=== PATIENT | female | born 1975 | race Caucasian/White ===

== ENCOUNTER → 2023-11-06 | Outpatient (CLI) | payer OTHER ==
[2023-11-06 23:03] LABS: Basophils # (A) 0.06 X 10*3/uL (0.00-0.10); Basophils % (A) 0.8 %; Eosinophils # (A) 0.13 X 10*3/uL (0.04-0.35); Eosinophils % (A) 1.7 %; HCT 39.7 % (37.2-46.3); HGB 12.9 g/dL (12.0-15.0); Lymphocytes # (A) 1.72 X 10*3/uL (0.90-5.00); Lymphocytes % (A) 22.5 %; MCH 30.6 pg (27.0-32.0); MCHC 32.5 g/dL (32.0-37.0); MCV 94.3 FL (80.0-97.0); Mean Platelet Volume 11.1 FL (9.5-12.2); Monocytes # (A) 0.79 X 10*3/uL (0.20-1.00); Monocytes % (A) 10.3 %; NRBC Per 100 WBC 0 X 10*3/uL (0.00-0.01); Neutrophils # (A) 4.93 X 10*3/uL (1.80-7.70); Neutrophils % (A) 64.3 %; Platelet Count 252 X 10*3/uL (140-440); RBC 4.21 X 10*6/uL (4.10-5.20); RDW 13.3 % (11.5-14.5); WBC 7.66 X 10*3/uL (4.50-10.00)
[2023-11-06 23:13] LABS: Blood Urea Nitrogen 11.2 mg/dL (9.0-27.0); Carbon Dioxide 26.9 mmol/L (21.6-31.8); Chloride 103 mmol/L (96-109); Potassium 4.4 mmol/L (3.5-5.5); Sodium 139 mmol/L (135-145)
== END | disposition home or self-care (01) ==
LOC: LABPAT 10:04
PROVIDERS: ATTEND Obstetrics & Gynecology Obstetrics
DX: Z01.812 Encounter for preprocedural laboratory examination (principal); D64.9 Anemia, unspecified; N80.129 Deep endometriosis of ovary, unspecified ovary
CPT/HCPCS: 36415; 80051; 82565; 84520; 85025; 86850; 86900; 86901; 87086

== ENCOUNTER 2023-11-11 05:48 | Day surgery (SDC) | payer OTHER ==
[2023-11-10 12:27] VITALS: BMI 27.9
[2023-11-11] MEDS ORDERED: LIDOCAINE 1% (10MG/ML) FOR IV START INTRADERMA PRN (06:06)
[2023-11-11 06:44] LABS: Glucose,Whole Blood 80 mg/dL (70-110)
[2023-11-11] MEDS: LACTATED RINGERS 1,000 ML IV SCH ×2 (06:50→13:36)
[2023-11-11] MEDS: MIDAZOLAM 2 MG/2 ML VIAL IVP ONE (07:13)
[2023-11-11] MEDS: DEXAMETHASONE SOD PHOSPHATE 4 MG/ML 1 ML VIAL IV ONE (07:20)
[2023-11-11] MEDS: ONDANSETRON 4 MG/2 ML VIAL IVP ONE ×2 (07:20→12:02)
[2023-11-11] MEDS: diphenhydrAMINE 50 MG/ML 1 ML VIAL ONE (07:20)
[2023-11-11] MEDS: FAMOTIDINE 20 MG/2 ML VIAL IVP ONE (07:20)
--- NOTE | 2023-11-11 07:26 | P.ANPRN ---
Procedure Note - Anesthesia - Epidural/Spinal Spinal Time Out Performed: Yes Date of Procedure: 11/11/23 Procedure Start Time: 07:12 Procedure Stop Time: 07:16 Location of Patient: PreOp Indication: Acute Post-Operative Pain, Analgesia, Requested by Surgeon Sedation Type: Sedate with meaningful contact maintained Preparation: Sterile Prep Position: Sitting Catheter: None Needle Guage: 25 Narrative: Duramorph 0.3mg intrathecally. AttemptX1 . L4-5 level needle insertion. Blood Aspirated: No Pain Paresthesia on Injection Noted: No Events: Uneventful and Well Tolerated
[2023-11-11] MEDS ORDERED: NEOSTIGMINE 1 MG/ML 10 ML VIAL ONE (07:30)
[2023-11-11] MEDS ORDERED: GLYCOPYRROLATE 0.2 MG/ML 2 ML VIAL ONE (07:30)
[2023-11-11] MEDS ORDERED: fentaNYL (PF) 50 MCG/ML 2 ML AMP ONE (07:30)
[2023-11-11] MEDS ORDERED: SUCCINYLCHOLINE CHLORIDE 200 MG/10 ML VIAL IV ONE (07:30)
[2023-11-11] MEDS ORDERED: MIDAZOLAM 2 MG/2 ML VIAL ONE (07:30)
[2023-11-11] MEDS ORDERED: LIDOCAINE 1% INJ 10MG/ML (20 ML MDV) ONE (07:30)
[2023-11-11] MEDS ORDERED: ROCURONIUM 10 MG/ML (5 ML VIAL) IV ONE (07:30)
[2023-11-11] MEDS ORDERED: PROPOFOL 10 MG/ML 20 ML VIAL IV ONE (07:30)
[2023-11-11] MEDS ORDERED: MORPHINE SULFATE (PF) 0.3 MG/0.3 ML SYR ONE (07:30)
[2023-11-11] MEDS: BUPIVACAINE (PF) 0.25% 30 ML VIAL SQ ONE ×2 (08:10→10:19)
[2023-11-11] MEDS: LACTATED RINGERS 1,000 ML IV ONE ×2 (10:04→12:39)
[2023-11-11] MEDS ORDERED: ONDANSETRON 4 MG/2 ML VIAL IVP PRN (10:50)
[2023-11-11] MEDS ORDERED: Acetaminophen-Codeine 300-30mg TAB PO PRN ×2 (10:50)
[2023-11-11] MEDS ORDERED: SIMETHICONE 80 MG CHEWABLE PO PRN (10:50)
[2023-11-11] MEDS ORDERED: METOCLOPRAMIDE 5 MG/ML 2 ML VIAL IVP PRN (10:50)
[2023-11-11] MEDS: diphenhydrAMINE 50 MG/ML 1 ML VIAL IVP ONE (10:57)
[2023-11-11] MEDS: ACETAMINOPHEN IV (For NPO) 1,000 MG in EMPTY BAG 1 BAG IVPB ONE (11:06)
[2023-11-11] MEDS ORDERED: NALOXONE 0.4 MG/ML 1 ML VIAL IV PRN (11:21)
[2023-11-11] MEDS ORDERED: NALBUPHINE 10 MG/ML (10 ML MDV) IV PRN (11:30)
[2023-11-11] MEDS: NALBUPHINE 10 MG/ML (10 ML MDV) IM ONE (11:43)
--- NOTE | 2023-11-11 12:00 | P.OP ---
Date of Procedure: 11/11/23 Preoperative Diagnosis: Enlarged fibroid uterus, menorrhagia, endometrioma, right ovary failed medical management Postoperative Diagnosis: Same Procedure(s) Performed: Robotic assist vaginal hysterectomy, right salpingo-oophorectomy, diagnostic cystoscopy Anesthesia: JILLIAN Surgeon: Vero Sanders Coat Padder #1: Rosana Coppola Estimated Blood Loss (ml): 50 IV fluids (ml): 600 Urine output (ml): 500 Pathology: other Condition: stable Disposition: PACU Indications for Procedure: Enlarged fibroid uterus, failed medical treatment. Operative Findings: Grossly enlarged uterus, right ovary with noted endometrioma, left ovary noted to be adherent to the left pelvic sidewall normal in appearance Description of Procedure: Patient was taken back to the operating suite where general anesthesia was obtained without difficulty by the anesthesia department. She was prepped and draped in the normal sterile fashion in the dorsal lithotomy position. A Carroll catheter was placed under sterile technique. A weighted speculum space in the posterior vaginal vault the anterior lip of the cervix was visualized and grasped with a single-tooth tenaculum. She did have a Mirena IUD in place and strings were not visualized and it was unable to be removed initially during the surgery. The endocervical canal was then easily serially dilated and a Kitchensurfing uterine manipulator was advanced into the uterus as a means to manipulate the uterus throughout the procedure. The balloon was insufflated with air and the cervical cap was placed to go against the cervix. All instruments were then removed from the patient's vaginal vault. Attention then turned the patient's abdomen where approximately 2 fingerbreadths above the umbilicus a small skin incision was made. Through this incision the Veress needle was placed. Once the Veress needle was deemed to be in the appropriate position with a drop of CO2 gas CO2 insufflation was allowed to occur. At this time a 8 mm trocar and sleeve with the laparoscope in place was placed through the skin incision and toward the pneumoperitoneum. The above-noted findings are visualized. The additional port sites were then placed at 10 cm lateral and 3 cm inferior to midline port these are 8 mm ports and then placed under direct visualization. In the right upper quadrant an senior court office assistant port is then placed at this is a 12 mm port placed under direct visualization. The da Lee was then docked in the usual fashion. In the right operative arm the monopolar scissors is placed, and the left operative arm the bipolar forceps is placed. Attention then turned to the patient's left adnexa the left ovary was noted to be densely adherent to the pelvic sidewall. The left utero-ovarian ligament was visualized coagulated distally and proximally and divided. This continued through the broad and toward the round ligament which was coagulated and transected. Hemostasis was appreciated. The bladder flap from the left was then created using sharp and blunt dissection. The ascending branch of the uterine artery was noted coagulated and transected. Attention was then turned to the patient's right adnexa the right infundibulopelvic ligament was visualized coagulated distally and proximally and divided. This continued through the broad and toward the round which was coagulated and transected. Incidental spillage of the endometrioma was noted during coagulation of the infundibulopelvic ligament. The round ligament was coagulated distally and proximally and divided. The bladder flap from the right was then created using sharp and blunt dissection. The bladder was noted to be free from the operating field but a Ray-Fabiola was placed inside the abdomen to freely dissect the bladder further away from the operating field. Once the bladder was dissected away from the operating field the Ray-Fabiola was removed from the abdomen. The ascending branch of the uterine artery from the right was then visualized coagulated and transected. Hemostasis was noted. At this time the only remaining attachment was a vaginal attachment therefore colpotomy incision was carefully made in a circumferential fashion. Dense inflammatory tissue secondary to her endometriosis was noted on the left vaginal cuff. The uterus was then transected into approximately 5 separate pieces and delivered through the abdomen 2 pieces were placed in Endo Catch bags and these bags were placed through the vaginal opening without difficulty. Once all pieces of the uterine tissue were removed along with the right fallopian tube and ovary the pelvis was then copiously irrigated. No bleeding was appreciated. The vaginal cuff was then closed with 0 Vicryl in a [id number]-ihges fashion. Approximately 4 sutures were used to obtain hemostasis. Inspection of the vaginal cuff revealed hemostasis. The left ovary was normal in nature no bleeding was appreciated. At this time all instruments were removed from the patient's abdomen. The da Lee was undocked in the usual fashion. The Carroll catheter then draining clear yellow urine throughout the procedure and was removed without difficulty. The cystoscope was then performed . The bladder was distended with fluid no defects were appreciated. E flux of urine was appreciated the urine was quite clear and was unable to differentiate what ureteral orifices the eflux was coming from, the left ureteral orifice this was pulsating in a normal fashion but no definitive urine was appreciated. At this time the scope was removed and the Carroll catheter was replaced. The skin i ncisions were then closed with 4-0 Vicryl in a subcuticular fashion Steri-Strips and sterile dressings were applied. All counts were to be correct x 2 at the end of the procedure. Patient tolerated procedure well and is resting comfortably.
[2023-11-11] MEDS: HYDROmorphone 0.5 MG/0.5 ML SYRINGE IVP PRN (12:02)
[2023-11-11] MEDS ORDERED: ARTIFICIAL TEARS-HYPROMELLOSE DROPS 15 ML BTL BOTH EYES PRN (13:30)
[2023-11-11] MEDS: SCOPOLAMINE 1 MG/72 HR PATCH TRANSDERM ONE (13:36)
[2023-11-11] MEDS: droPERidol 5 MG/2 ML VIAL IVP ONE (13:36)
--- NOTE | 2023-11-11 13:41 | P.PN ---
Progress Note - Text Progress Note Date: 11/11/23 Into see patient to discuss procedure. Discussed large fibroid uterus, significant endometriosis noted in the left lower quadrant. Inflammatory changes appreciated. Cystoscopy noted to be nondiagnostic with minimal eflux noted from left ureter, plan CT IVP to evaluate urinary tract system. It appeared surgically to be away from the operating field but given cystoscopy findings further diagnostic workup is prudent. Patient and family state understanding, CT is ordered
--- NOTE | 2023-11-11 15:56 | CT ---
EXAMINATION TYPE: CT urogram wo/w con DATE OF EXAM: 11/11/2023 COMPARISON: None HISTORY: 48-year-old female s/p RAVH, large fibroid uterus with endometriosis TECHNIQUE: Contiguous axial scanning of the abdomen and pelvis performed without and with IV Contrast , patient injected with 100 mL of Isovue 300. Delayed images through the kidneys and bladder were obt ained. Coronal/sagittal reconstructions performed. CT DLP: 2825 mGycm Automated exposure control for dose reduction was used. FINDINGS: Heart normal size without pericardial effusion. Lung bases clear without pleural effusion. Mild free peritoneal air throughout the abdomen likely on a postsurgical basis. Tiny 1 cm hemangioma within the central right liver lobe. Portal venous system is patent. No biliary ductal dilatation. Gallbladder, adrenal glands, right kidney, spleen, and pancreas within normal limits. No dilated small bowel. There is moderate scattered stool. Benign 1 cm cyst lower pole left kidney. No suspicious renal mass on either side. There is moderate left-sided hydronephrosis and left hydroureter. The dilated left ureter shows a tra nsition point in the left adnexa, approximately 1.5 to 2.0 cm above the level of the UVJ. This seems to be slight eccentric thickening here along the left vaginal cuff, axial image 64. Mild pelvic free fluid. Right ovary not well delineated. There is a 3.3 cm cyst of the left ovary. A couple tiny left-sided p elvic lymph nodes. Carroll catheter in place. Intraluminal bladder air likely related to instrumentatio n. Bones: Moderate degenerative disc disease with disc space narrowing and mild disc bulging at L5-S1. IMPRESSION: 1. MODERATE LEFT-SIDED HYDRONEPHROSIS AND LEFT HYDROURETER. The ureter shows an abrupt caliber change located approximately 1.5 to 2.0 cm above the level of the UVJ. There may be slight eccentric thicke ann-marie here along the left vaginal cuff (axial image 64). Unclear if this represents unintentional liga tion during surgery versus a ureteral stricture (such as relating to endometriosis). 2. Mild postsurgical free air. Mild pelvic free fluid probably postoperative as well. A 3.3 cm domina nt follicle or functional cyst of the left ovary.
--- NOTE | 2023-11-11 19:06 | P.GSCN ---
History of Present Illness Consult date: 11/11/23 History of present illness: asked by Dr. Sanders to see this pleasant 48-year-old female who is status post robotic-assisted laparoscopic hysterectomy. There was a lot of scarring and endometriosis per Dr. sanders. Postoperatively the patient had cystoscopy. The bladder was intact. The right ureter effluxed urine but the left did not. The left did peristalse. No Blood was noted. CAT scanwas performed identifying left-sided hydronephrosis and hydroureter down into the pelvis. For this reason I was asked to see the patient. The patient is asymptomatic postoperatively. There is no flank pain or abdominal pain. Her urine is clear. Her vital signs are stable. She is afebrile. There is a history of probable kidney stones on the left side. She has not had surgery for that. He states this was evaluated in the [facility] system. She never collected a stone. She has not had surgery for stones. She has not had previous stones. She has had side abdominal pain in the last year. No other previous abdominal surgery.her preoperative labs are normal. Review of Systems All systems: negative - Constitutional Denies fever, Denies weight loss - EENT Eyes: denies blurred vision Ears, nose, mouth and throat: Denies dysphagia - Cardiovascular Denies chest pain, Denies shortness of breath - Respiratory Denies cough, Denies 7 - Gastrointestinal Reports as per HPI - Genitourinary Genitourinary: Denies dysuria, Denies hematuria - Integumentary Denies rash, Denies unusual bruising - Neurological Denies headaches, Denies syncope - Hematologic/Lymphatic Denies easy bleeding, Denies easy bruising Past Medical History Past Medical History: GERD/Reflux Additional Past Medical History / Comment(s): uterine fibroids,endometriosis with cysts,anemia, hx kidney stones,cortisone shot rt wrist beginning of October 2023-swelling and pain resolved-now sleeps with brace to rt wrist History of Any Multi-Drug Resistant Organisms: None Reported Additional Past Surgical History / Comment(s): katerin cataracts Past Anesthesia/Blood Transfusion Reactions: No Reported Reaction, Family History of Problems w/ Anesthesia Additional Past Anesthesia/Blood Transfusion Reaction / Comm: no hx of general anesthesia,no hx blood transfusion. mom PONV Past Psychological History: No Psychological Hx Reported Smoking Status: Former smoker Past Alcohol Use History: None Reported Past Drug Use History: None Reported - Past Family History Mother Family Medical History: No Reported History Medications and Allergies Home Medications Medication Instructions Recorded Confirmed Type Ibuprofen [Advil] 800 mg PO DAILY PRN 11/10/23 11/11/23 History Loratadine [Claritin] 10 mg PO DAILY 11/10/23 11/11/23 History Allergies Allergy/AdvReac Type Severity Reaction Status Date / Time Penicillins Allergy Rash/Hives Verified 11/11/23 06:31 Surgical - Exam Vital Signs Temp Pulse Resp BP Pulse Ox 98.3 F 75 16 120/67 100 11/11/23 06:35 11/11/23 06:35 11/11/23 06:35 11/11/23 06:35 11/11/23 06:35 - General well developed, well nourished, no distress - Eyes normal ocular movement, no icteric - ENT no hearing loss, no congestion - Neck no masses, trachea midline - Respiratory normal respiratory effort, clear to auscultation - Abdomen Abdomen: soft, non tender, no guarding, no rigid, no rebound - Integumentary no rash, no abnormal pigmentation - Neurologic no disoriented, no combative - Psychiatric oriented to time, oriented to person, oriented to place, speech is normal, memory intact Results - Imaging CT scan - abdomen: report reviewed, image reviewed CT scan - pelvis: report reviewed, image reviewed Assessment and Plan Assessment: impression: Left-sided hydroureter and hydronephrosis of indeterminate etiology possible related to swelling and/or intraoperative injury of the left ureter during hysterectomy today. She kidney stones. Recommendations: She'll be set up for cystoscopy left retrograde pyelogram possible stent and possible exploration with ureteral reimplantation if she has an obstruction and I am unable to manipulate it endoscopically. The risks and, patient's have been discussed with the patient and her . She understands. We will proceed with this tomorrow.
[2023-11-11 20:02] LABS: HCT 37.4 % (34.0-46.0); MCH 31.5 pg (25.0-35.0); MCV 98.4 fL (80.0-100.0); Mean Platelet Volume 8.1; Platelet Count 234 k/uL (150-450); RBC 3.81 m/uL (3.80-5.40); RDW 12.9 % (11.5-15.5); WBC 16.8 k/uL (3.8-10.6)
[2023-11-11 20:10] LABS: African American GFR (CKD) >90 (>60 ml/min/1.73 sqM); Anion Gap 9 mmol/L; Blood Urea Nitrogen 10 mg/dL (7-17); Calcium 8.8 mg/dL (8.4-10.2); Carbon Dioxide 21 mmol/L (22-30); Chloride 107 mmol/L (98-107); Glucose 112 mg/dL (74-99); Non-African American GFR(CKD) >90 (>60 ml/min/1.73 sqM); Potassium 4.2 mmol/L (3.5-5.1); Sodium 137 mmol/L (137-145)
[2023-11-11] MEDS: SENNOSIDES-DOCUSATE SODIUM 1 EACH TAB PO SCH (20:23)
[2023-11-11] MEDS: IBUPROFEN 600 MG TAB PO PRN (20:32)
[2023-11-11] MEDS: diphenhydrAMINE 50 MG/ML 1 ML VIAL IVP PRN (22:23)
--- NOTE | 2023-11-12 07:46 | P.PN ---
Progress Note - Text Progress Note Date: 11/12/23 (0656) Anesthesia Postop day 1 Subjective: Status Post hysterectomy with Duramorph. Patient seen and examined. Mild pruritus. No nausea or vomiting. VAS 1 out of 10. Denies fever. Gross lower extremity strength intact. Without apparent anesthetic complications. Objective: Vital signs reviewed Heart: Regular Rate Lungs: Good chest excursion Abdomen: Appears nondistended Assessment: Status post hysterectomy with Duramorph postop day 1 Plan: 1. Continue current care with your medical management. Anticipated end to the duration of the Duramorph around surgery time today. You may see increased pain needs around this time. 2. This note was dictated using [employer] software. Please be advised there is a potential for misspellings or errors in president and chief commercial officer.
[2023-11-12 08:50] LABS: Basophils # (A) 0.1 k/uL (0-0.2); Basophils % (A) 0 %; Eosinophils % (A) 0 %; HCT 34.1 % (34.0-46.0); HGB 11.1 gm/dL (11.4-16.0); Lymphocytes % (A) 15 %; MCH 31.6 pg (25.0-35.0); MCHC 32.6 g/dL (31.0-37.0); Mean Platelet Volume 8.6; Monocytes # (A) 0.9 k/uL (0-1.0); Monocytes % (A) 7 %; Neutrophils # (A) 10.4 k/uL (1.3-7.7); Neutrophils % (A) 77 %; Platelet Count 187 k/uL (150-450); RBC 3.52 m/uL (3.80-5.40); RDW 13.1 % (11.5-15.5); WBC 13.4 k/uL (3.8-10.6)
[2023-11-12 08:53] VITALS: RESP 16
--- NOTE | 2023-11-12 09:04 | P.PN ---
Subjective Progress Note Date: 11/12/23 Principal diagnosis: Postop day 1, status post robotic assisted vaginal hysterectomy, right salpingo- oophorectomy, diagnostic cystoscopy Patient did well overnight, she states her pain is well-controlled. Urology was consulted last evening given findings of ureteral stricture on the left. Case was reviewed with urology prior to consult, patient was aware of need for CT urogram, and concerns. Patient states understanding of plan of care this morning. She denies vaginal bleeding. She is n.p.o. for surgery this afternoon with Dr. Landin Objective - Vital Signs Vital signs: Vital Signs Temp 98.6 F 11/12/23 07:50 Pulse 59 L 11/12/23 07:50 Resp 16 11/12/23 07:50 BP 128/78 11/12/23 07:50 Pulse Ox 98 11/12/23 07:50 FiO2 Intake & Output 11/11/23 11/12/23 11/12/23 18:59 06:59 18:59 Intake Total 1950 Output Total 1025 1800 Balance 925 -1800 Weight 63 kg Intake: IV 1950 Output: Urine 975 1800 Uretheral (Carroll) 800 Estimated Blood Loss 50 Other: Voiding Method Indwelling Catheter Indwelling Catheter Indwelling Catheter - Constitutional General appearance: Present: cooperative, no acute distress - Gastrointestinal General gastrointestinal: Present: normal bowel sounds, soft - Genitourinary Genitourinary Comment(s): Carroll remains draining clear yellow urine - Psychiatric Psychiatric: Present: appropriate affect - Labs CBC & Chem 7: 11/12/23 07:48 11/11/23 19:39 Labs: Abnormal Lab Results - Last 24 Hours (Table) 11/11/23 11/11/23 11/12/23 Range/Units 19:39 19:39 07:48 WBC 16.8 H 13.4 H (3.8-10.6) k/uL RBC 3.52 L (3.80-5.40) m/uL Hgb 11.1 L (11.4-16.0) gm/dL Neutrophils # 10.4 H (1.3-7.7) k/uL Carbon Dioxide 21 L (22-30) mmol/L Glucose 112 H (74-99) mg/dL Assessment and Plan (1) S/P hysterectomy with oophorectomy Current Visit: Yes Status: Acute Code(s): Z90.710 - ACQUIRED ABSENCE OF BOTH CERVIX AND UTERUS; Z90.721 - ACQUIRED ABSENCE OF OVARIES, UNILATERAL SNOMED Code(s): 561482689 (2) Ureteral stricture, left Current Visit: Yes Status: Acute Code(s): N13.5 - CROSSING VESSEL AND STRICTURE OF URETER W/O HYDRONEPHROSIS SNOMED Code(s): 26604750 Plan: 48-year-old status post hysterectomy yesterday a.m., on diagnostic cystoscopy ureteral pulsation but minimal to no efflux of urine was appreciated this led to a CT urogram. Ureteral stricture was appreciated. Patient has significant amount of endometriosis in the left lower quadrant with adherence of the left ovary to the left pelvic sidewall. Urology was consulted, case was reviewed with him in detail. Full consult is on chart, patient states understanding of the plan and all questions are answered.
[2023-11-12] MEDS ORDERED: ACETAMINOPHEN TAB 325 MG TAB PO PRN (10:52)
[2023-11-12] MEDS: LACTATED RINGERS 1,000 ML IV ONE (11:41)
[2023-11-12] MEDS: DEXAMETHASONE SOD PHOSPHATE 4 MG/ML 1 ML VIAL IVP ONE (12:01)
[2023-11-12] MEDS: ONDANSETRON 4 MG/2 ML VIAL IVP ONE (12:01)
[2023-11-12] MEDS ORDERED: LIDOCAINE 1% INJ 10MG/ML (20 ML MDV) ONE (12:02)
[2023-11-12] MEDS ORDERED: PROPOFOL 10 MG/ML 20 ML VIAL IV ONE (12:02)
[2023-11-12] MEDS ORDERED: SUCCINYLCHOLINE CHLORIDE 200 MG/10 ML VIAL IV ONE (12:02)
[2023-11-12] MEDS ORDERED: PHENYLEPHRINE-0.9% NACL SYG 1,000 MCG/10 ML SYRINGE ONE (12:02)
[2023-11-12] MEDS ORDERED: fentaNYL (PF) 50 MCG/ML 2 ML AMP ONE (12:02)
[2023-11-12] MEDS ORDERED: MIDAZOLAM 2 MG/2 ML VIAL ONE (12:02)
[2023-11-12] MEDS: LEVOFLOXACIN 500MG-D5W PMX 500 MG in DEXTROSE/WATER 1 100ML.BAG IVPB STA (12:07)
--- NOTE | 2023-11-12 12:46 | P.OP ---
Date of Procedure: 11/12/23 Preoperative Diagnosis: hydronephrosis left status post hysterectomy Postoperative Diagnosis: same, secondary to probable edema Procedure(s) Performed: cystoscopy, left retrograde pyelogram, placement of 624 stent Anesthesia: JILLIAN Surgeon: Stephen Landin Estimated Blood Loss (ml): 0 Pathology: none sent Condition: stable Disposition: PACU Indications for Procedure: patient is 48. She underwent a robotic-assisted hysterectomy yesterday by . the procedure is difficult complicated by significant amount of endometriosis. Stop bleed Dr. groves looked into the bladder and found a normal bladder. Normal reflexes of urine from the right but not from the left. A postoperative computed tomography scan identified left-sided hydronephrosis. I saw the patient in consultation. She is relatively asymptomatic however with the hydronephrosis she'll undergo cystoscopy retrograde pyelogram and hopefully stent. Description of Procedure: Patient brought to the operating suite. Given a general anesthetic. Placed lithotomy position with a sterile prep and drape. Cystoscopy with a Foroblique lens and 21-[place] sheath identifies a normal urethra. The right ureteral orifice is normal as is the left. There is some catheter edema in the bladder but is otherwise unremarkable. Within an 8 cone-tipped catheter a left retrograde pyelogram performed. The distal ureter through the intramural tunnel and just proximal to that is slightly narrowed and there is a bit of a J-hook consistent with probably some edema around the ureter. Proximal to this there is moderate hydronephrosis. Contrast does enter into the proximal ureter without difficulty. I then pass an 035 wire through the ureter up into the left renal pelvis. Over the wires I passed a 6 x 24 double-J cath that coils in the renal pelvis and the bladder. the bladder is drained ,the patient is awakened and returned recovery in good condition. She'll be discharged home later today. She'll follow in the office next week. I'll leave the Left ureteral catheter for 4-6 weeks.
--- NOTE | 2023-11-12 13:14 | FL ---
EXAMINATION TYPE: FL urography retrograde DATE OF EXAM: 11/12/2023 COMPARISON: NONE HISTORY: CYSTO LITHO TECHNIQUE: Fluoroscopy. FINDINGS: FL 40.2 DAP [id number] LEFT SIDE RETROGRADE WITH STENT PLACEMENT IMPRESSION: As Above.
[2023-11-12] MEDS: LORATADINE 10 MG TAB PO SCH (14:00)
[2023-11-12 16:24] VITALS: BP 111/64; PULSE 60; TEMP 97.8
--- NOTE | 2023-11-16 09:56 | P.DS ---
Providers Date of admission: 11/11/2023 Expected date of discharge: 11/12/23 Attending physician: Vero Sanders Consults: 11/11/23 16:53 Consult Physician Urgent Consulting Provider: Stephen Landin Consult Reason/Comments: hydroureter s/p hysterectomy, CT urogram on chart Do you want consulting provider notified?: Yes Primary care physician: Stated None - Discharge Diagnosis(es) (1) S/P hysterectomy with oophorectomy Status: Acute (2) Ureteral stricture, left Status: Acute (3) Uterine fibroid Status: Acute (4) Enlarged uterus Status: Acute (5) Endometriosis Status: Acute (6) DUB (dysfunctional uterine bleeding) Status: Acute Hospital Course: 48 yo female that presented to the hospital on 11/10 for scheduled hysterectomy. She had been struggling with DUB, known uterine fibroids and failed medical management with mirena IUD. US revealing a dermoid cyst, on the right ovary in addition. she was counseled on definitive treatment with hysterecomty given her pelvic pathology noted on US. She is very desirous of RAVH and conservation of the left ovary. risks were reviewed in detail given her uterine size and endometrioma, suspicion for endometriosis within the pelvis. She was taken back to the OR, for scheduled RAVH RSO DC. surgery was completed without difficulty, uterus was noted to be grossly enlarged with endometriosis within the LLQ. The left adnexa and lower quadrant was noted to be adherent and scarred to the pelvic side wall. Diagnostic cystoscopy was preformed and left ureteral pulsation was noted but no efflux of urine was noted. CT urogram was completed post operatively and stricture was noted 1.5-2cm from the UV junction. Urology was consulted and did take her back to the OR the next day for stent placement. Stent was placed without difficulty by Dr Landin. She was returned to her room and had 2 spontaneous void s/p foler removal. she was feeling well pain was well controlled and she states she was ready for discharge. Dr Landin had states she was ok with discharge the afternoon after placement. His discharge instruction were reviewed with the patients . She was counseled on hysterectomy discharge instruction, as well. bleeding precautions reviewed Patient Condition at Discharge: Good Plan - Discharge Summary Discharge Rx Participant: No New Discharge Prescriptions: No Action Loratadine [Claritin] 10 mg PO DAILY Ibuprofen [Advil] 800 mg PO DAILY PRN PRN Reason: Pain Discharge Medication List Ibuprofen [Advil] 800 mg PO DAILY PRN 11/10/23 [History] Loratadine [Claritin] 10 mg PO DAILY 11/10/23 [History] Follow up Appointment(s)/Referral(s): Vero Sanders DO [Doctor of Osteopathic Medicine] - 1 Week Stephen Landin MD [STAFF PHYSICIAN] - 10 Days Patient Instructions/Handouts: Laparoscopic Hysterectomy (GEN), Laparoscopic Hysterectomy (DC) Activity/Diet/Wound Care/Special Instructions: bleeding with urination and feeling of a UTI are common s/p ureteral stent placement. spotting and bleeding s/p hysterecomty are common as well, otc motrin is discussed 600mg or 3 tabs q 6 hours as needed for pain. she is to follow up in 1 week for close follow up/post op care Discharge Disposition: HOME SELF-CARE
== END 2023-11-12 16:32 | disposition home or self-care (01) ==
LOC: OR 05:48 → 4FBP 10:58 → OR 11-12 16:32
PROVIDERS: ATTEND Obstetrics & Gynecology Obstetrics
DX: D25.1 Intramural leiomyoma of uterus (principal); N72 Inflammatory disease of cervix uteri; N13.2 Hydronephrosis with renal and ureteral calculous obstruction; N80.121 Deep endometriosis of right ovary; Z88.0 Allergy status to penicillin
CPT/HCPCS: 52332; 58552; S2900; 74178; 74400; 74420; 80048; 81025; 85025; 85027; 88307

== ENCOUNTER → 2024-06-07 | Outpatient (CLI) | payer OTHER, BC ==
--- NOTE | 2024-06-07 17:06 | CT ---
EXAMINATION TYPE: CT abdomen pelvis wo/w con DATE OF EXAM: 06/07/2024 4:54 PM COMPARISON: 11/11/2023 CLINICAL INDICATION: Female, 48 years old with history of K66.8 PERITONEUM CYST R10.12 LUQ PAIN R11.2 NAUSEA; surgical site not healing TECHNIQUE: Axial CT abdomen pelvis wo/w con;Sagittal and coronal reformats were created on a [employer] workstation. Contrast used:100ml mL of Isovue 370 without and with IV Contrast, (none if empty) Oral contrast used: with Oral Contrast (none if empty) CT DLP: 596 mGycm, Automated exposure control for dose reduction was used. FINDINGS: LOWER CHEST: Unremarkable ABDOMEN LIVER: Unremarkable GALLBLADDER AND BILE DUCTS: Unremarkable. PANCREAS: Unremarkable. SPLEEN: Unremarkable. ADRENAL GLANDS: Unremarkable. KIDNEYS AND URETERS: Moderate left hydronephrosis with delayed nephrogram. Dilation similar to prior however delayed nephrogram is new. The left ureter is dilated with tortuosity its distal aspect is so mewhat limited due to lack of contrast extending into the ureter. There appears to be some sort of st ricture in the distal portion series 11 image 69 where there is mass effect from fluid collection wit h narrowed caliber of the ureter.. Mild right hydronephrosis versus extrarenal pelvis. PELVIS BLADDER: No evidence for wall thickening or mass given limitations of exam. REPRODUCTIVE: Unremarkable. ABDOMEN & PELVIS STOMACH AND BOWEL: No evidence of bowel obstruction. PERITONEUM/RETROPERITONEUM: No evidence of pneumoperitoneum. Peritoneal fluid collection measuring 70 x 49 mm. This demonstrates mass effect on the distal ureter and its adjacent fat series 3 image 61 w here the ureters small in caliber. VASCULATURE: No evidence of aortic aneurysm. MUSCULOSKELETAL: No acute osseous abnormalities LYMPH NODES: No gross evidence for lymphadenopathy. SOFT TISSUE/ABDOMINAL WALL: Unremarkable IMPRESSION: 1. Moderate left hydroureteronephrosis with delayed nephrogram which is new from prior suggesting ob struction. Possibly distal ureter obstruction Urologic consultation for evaluation of the distal uret er recommended. 2. Pelvic fluid collection which may be partially due to bleeding for distal ureter obstruction with some mass effect upon the distal ureter. [facility], Workstation: [id number], 06/07/2024 5:03 PM
== END | disposition home or self-care (01) ==
LOC: RADCTMAIN 14:33
PROVIDERS: ATTEND Obstetrics & Gynecology Obstetrics
DX: K66.8 Other specified disorders of peritoneum (principal); N13.39 Other hydronephrosis
CPT/HCPCS: 74178; Q9967

== ENCOUNTER 2024-06-08 10:38 | Day surgery (SDC) | payer BC, OTHER ==
[~2024-06-08 10:38] MED LIST: Pre Op ABX Message 1 EACH MISC MISCELLANE ONE
[2024-06-08] MEDS: IV FLUID CONTINUATION 1,000 ML IV ONE (10:59)
[2024-06-08] MEDS: DEXAMETHASONE SOD PHOSPHATE 4 MG/ML 1 ML VIAL IVP STA (11:46)
[2024-06-08] MEDS: ONDANSETRON 4 MG/2 ML VIAL IVP STA (11:47)
[2024-06-08] MEDS ORDERED: MIDAZOLAM 2 MG/2 ML VIAL ONE (13:09)
[2024-06-08] MEDS ORDERED: LIDOCAINE 1% INJ 10MG/ML (20 ML MDV) ONE (13:09)
[2024-06-08] MEDS ORDERED: PROPOFOL 10 MG/ML 20 ML VIAL IV ONE (13:09)
[2024-06-08] MEDS ORDERED: fentaNYL (PF) 50 MCG/ML 2 ML AMP ONE (13:09)
[2024-06-08] MEDS ORDERED: KETOROLAC 15 MG/ML 1 ML VIAL ONE (13:09)
[2024-06-08] MEDS: LACTATED RINGERS 1,000 ML IV ONE (13:30)
[2024-06-08] MEDS: IOPAMIDOL-370 100ML BTL MISCELLANE ONE (13:40)
--- NOTE | 2024-06-08 14:09 | P.OP ---
Date of Procedure: 06/08/24 Preoperative Diagnosis: left hydronephrosis status post hysterectomy for endometriosis Postoperative Diagnosis: same Procedure(s) Performed: cystoscopy, left retrograde pyelogram, placement of 6 x 24 double-J cath Anesthesia: JILLIAN Surgeon: Stephen Landin Indications for Procedure: the patient is [address]. [address] Sanders did an abdominal hysterectomy 6 months ago. Postoperatively the patient had some left-sided hydronephrosis. I did cystoscopy and retrograde pyelogram with stent placement. Is unclear as exact cause of the hydronephrosis but either there was endometriosis edema causing obstruction of the distal ureter. Patient did well and I pulled the stent several weeks later. Follow-up ultrasound showed that the left-sided hydronephrosis had diminished.the patient developed some abdominal plain plus vaginal bleeding. Computed tomography scan identified left-sided hydronephrosis again as well as either a fallopian tube or granulation tissue in the vaginal vault. asked me to do cystoscopy and left retrograde pyelogram today at the time she does excision of the cuff tissue. Description of Procedure: the patient is been previously anesthetized. SHe is in lithotomy position. Dr. Sanders has performed excision of the granulation tissue. The bladder is intubated with a 21-Vietnamese sheath and Foroblique lens. Urethra is normal. The ureteral orifices are normal. The bladder mucosa is unremarkable. Within a cone-tipped catheter a left retrograde pyelogram performed. The distal ureter is normal and there is a relatively abrupt cut off the distal ureter between the vessels and the bladder. Proximal to this there is left-sided hydroureteronephrosis. An 035 wire easily passes through the ureter up into the collecting system. Over the wire pass a 6 x 24 double-J catheter that sits in the UPJ and in the bladder. The bladder is drained. reenters the procedure to reassess the vaginal repair. Impression left-sided hydronephrosis due to either endometriosis or scarring of the distal left ureter. This has temporarily been controlled with a stent. The patient will probably need formal surgical repair. She is probably going to be referred to [facility] oncology in the city for further evaluation and treatment of endometriosis, left-sided ovary and disease in the left side of the pelvis. At that time urology could repair the ureter.the appearance of the stone narrowing and changed to the hydronephrosis was also identical from the October retrograde pyelogram to the May retrograde pyelogram on the left side
--- NOTE | 2024-06-08 14:16 | P.OP ---
Date of Procedure: 06/08/24 Preoperative Diagnosis: General cuff defect status post hysterectomy in October Postoperative Diagnosis: Same Procedure(s) Performed: Vaginal cuff defect closure Anesthesia: MAC Surgeon: Vero Sanders [employer]er #1: Ciro Grossman Estimated Blood Loss (ml): 10 Urine output (ml): 100 Pathology: other (Vaginal cuff granulation tissue) Condition: stable Disposition: PACU Indications for Procedure: Increased vaginal bleeding status post hysterectomy in October, increased granulation tissue appreciated on exam in the office Increasing pain led to CAT scan of the abdomen pelvis revealing ureteral stricture, hydroureter appreciated. Dr. Borja in case to pass ureteral stent and do retrocystogram Operative Findings: Fleshy granulation tissue appreciated on the lateral edge of the vaginal cuff. Tissue is friable and noted bleeding is appreciated Description of Procedure: Patient is prepped and draped in normal sterile fashion in the dorsal lithotomy position. A red rubber catheter was used to drain the bladder of clear yellow urine, a weighted speculum is placed in the posterior vaginal vault, and anterior blade is used to push the bladder away from the operating field.. Granulation tissue was grasped with an Allis and sent off to pathology. The area is then cauterized, hemostasis noted. A running locked 0 Vicryl is used to obtain closure a second [id number] suture was obtained on the lower end of the defect for continued closure. Hemostasis was appreciated after closure.
[2024-06-08 14:17] VITALS: TEMP 98.3
--- NOTE | 2024-06-08 14:36 | FL ---
EXAMINATION TYPE: FL urography retrograde DATE OF EXAM: 06/08/2024 COMPARISON: NONE HISTORY: CYSTO WITH PYELOGRAM AND STENT PLACEMENT TECHNIQUE: Fluoroscopy. FINDINGS: 87 SEC FL .02584 DAP dose IMPRESSION: As Above. [facility], , 06/08/2024 2:34 PM
[2024-06-08 14:56] VITALS: RESP 16
[2024-06-08 16:02] VITALS: BP 125/74; PULSE 60
== END 2024-06-08 16:15 | disposition home or self-care (01) ==
LOC: OR 10:38
PROVIDERS: ATTEND Obstetrics & Gynecology Obstetrics
DX: N13.30 Unspecified hydronephrosis (principal); N80.9 Endometriosis, unspecified; K21.9 Gastro-esophageal reflux disease without esophagitis; Z90.710 Acquired absence of both cervix and uterus; Z88.5 Allergy status to narcotic agent; Z88.0 Allergy status to penicillin
CPT/HCPCS: 74420; 52005; C2625; C1758; C1769; J2250; J1100; J2405; J2003; J3010; J1885; J2704; Q9967